=== PATIENT | male | born 1970 | race Caucasian/White ===

== ENCOUNTER 2020-11-17 18:22 | Inpatient (IN) | payer OTHER ==
[~2020-11-17] VITALS: Ht 175.3 cm; Wt 108.4 kg
[2020-11-17] MEDS ORDERED: ASPIRIN EC81 MG PO (19:22)
[2020-11-17 22:08] LABS: HEMOGLOBIN 15.4 gm/dl (14.0-17.5); RED BLOOD COUNT 5.29 M/UL (4.20-5.50); WHITE BLOOD COUNT 8.6 K/UL (4.5-11.0)
[2020-11-18 05:28] LABS: HEMOGLOBIN 15.5 gm/dl (14.0-17.5); RED BLOOD COUNT 5.35 M/UL (4.20-5.50); WHITE BLOOD COUNT 8.4 K/UL (4.5-11.0)
[2020-11-18 12:11] LABS: BUN/CREATININE RATIO 11 (0-10)
[2020-11-19 01:02] LABS: HEMOGLOBIN 15.4 gm/dl (14.0-17.5); RED BLOOD COUNT 5.33 M/UL (4.20-5.50); WHITE BLOOD COUNT 8.3 K/UL (4.5-11.0)
[2020-11-19 01:29] LABS: BUN/CREATININE RATIO 13 (0-10)
[2020-11-19 23:37] LABS: HEMOGLOBIN 15.5 gm/dl (14.0-17.5); RED BLOOD COUNT 5.34 M/UL (4.20-5.50); WHITE BLOOD COUNT 9.7 K/UL (4.5-11.0)
[2020-11-19 23:52] LABS: BUN/CREATININE RATIO 10 (0-10)
[2020-11-20 02:34] LABS: HEMOGLOBIN 15.5 gm/dl (14.0-17.5); RED BLOOD COUNT 5.35 M/UL (4.20-5.50); WHITE BLOOD COUNT 9.2 K/UL (4.5-11.0)
[2020-11-20 02:52] LABS: BUN/CREATININE RATIO 11 (0-10)
[2020-11-20] MEDS ORDERED: BRILINTA 90 MG90 MG PO (09:02)
[2020-11-20] MEDS ORDERED: NICOTINE PATCH1 EAC2 TD (09:02)
[2020-11-20] MEDS ORDERED: NITROGLYCERIN0.4 MG SL (09:02)
[2020-11-20] MEDS ORDERED: LIPITOR40 MG PO (09:02)
[2020-11-20] MEDS ORDERED: LOPRESSOR 25 MG25 MG PO (09:02)
== END 2020-11-20 08:57 | disposition home or self-care (01) | DRG 247 ==
LOC: PROG CARE 18:22
PROVIDERS: Internal Medicine; Internal Medicine Interventional Cardiology; ADMIT Internal Medicine Infectious Disease
PROC: B24BZZ4 Ultrasonography of Heart with Aorta, Transesophageal (ICD-10-PCS; 2020-11-18)
PROC: 027034Z Dilation of Coronary Artery, One Artery with Drug-eluting Intraluminal Device, Percutaneous Approach (ICD-10-PCS; principal; 2020-11-19)
PROC: B2111ZZ Fluoroscopy of Multiple Coronary Arteries using Low Osmolar Contrast (ICD-10-PCS; 2020-11-19)
DX: I21.4 Non-ST elevation (NSTEMI) myocardial infarction (principal); G45.9 Transient cerebral ischemic attack, unspecified; E66.2 Morbid (severe) obesity with alveolar hypoventilation; B19.20 Unspecified viral hepatitis C without hepatic coma; Z20.822 Contact with and (suspected) exposure to COVID-19; E83.42 Hypomagnesemia; F17.210 Nicotine dependence, cigarettes, uncomplicated; R00.1 Bradycardia, unspecified; Z79.82 Long term (current) use of aspirin; Z71.6 Tobacco abuse counseling; Z87.442 Personal history of urinary calculi; Z88.0 Allergy status to penicillin; Z68.35 Body mass index [BMI] 35.0-35.9, adult
CPT/HCPCS: ECHO; 36415; 70496; 70498; 71045; 80048; 80053; 82550; 82553; 83735; 84443; 84484; 85025; 85027; 85347; 85610; 85730; 93005; 93306; 99152; 99153; C1725; C1769; C1874; C1887; C9600; J1644; J2250; J3010; J3246; J3475; J7040; Q9967; U0002